=== PATIENT | male | born 1965 | race Caucasian/White ===

== ENCOUNTER 2017-02-07 22:00 | Emergency (ER) | payer OTHER ==
[2017-02-07 22:16] VITALS: BMI 31.0
--- NOTE | 2017-02-07 22:40 | PDOC ---
History of Present Illness - History of Present Illness Initial Comments: 02/07/17 22:40 Mr. Santos is a 52 yo male with a significant past medical history of Hypercholesterolemia, Hypertriglyceridemia, BPH, and pre-diabetes who presents to the emergency department with a one day history of pain to his lower right abdomen and right flank. He says that the pain is constant and that earlier today it made him dizzy and that he had to sit down so he didn't pass out. He also reports a recent diagnosis of prostate infection for which he has started taking levofloxacin. The patient denies chest pain, shortness of breath, and headache. Denies fever, chills, nausea, vomit, diarrhea and constipation. Denies frequency, urgency and hematuria. Allergies: NKDA 2 02/07/17 23:09 <Ronald Hunter - Last Filed: 02/07/17 22:56> <Sammi Lane - Last Filed: 02/09/17 00:14> - General Chief Complaint: Pain Stated Complaint: PAIN,DIZZINESS Time Seen by Provider: 02/07/17 22:39 Past History - Past Medical History Anemia: No Asthma: No Cancer: No Cardiac Disorders: No CVA: No COPD: No CHF: No Dementia: No Diabetes: Yes GI Disorders: Yes (GERD) Disorders: No HTN: No Hypercholesterolemia: Yes (NO MEDICATION) Liver Disease: No Seizures: No Thyroid Disease: No - Surgical History Abdominal Surgery: No Appendectomy: No Cardiac Surgery: No Cholecystectomy: No Lung Surgery: No Neurologic Surgery: No Orthopedic Surgery: Yes (LEFT KNEE SURGERY) - Psycho/Social/Smoking Cessation Hx Anxiety: No Suicidal Ideation: No Smoking History: Never smoked Have you smoked in the past 12 months: No Number of Cigarettes Smoked Daily: 0 If you are a former smoker, when did you quit?: 1979 Information on smoking cessation initiated: No Hx Alcohol Use: No Drug/Substance Use Hx: No Substance Use Type: None Hx Substance Use Treatment: No <Ronald Hunter - Last Filed: 02/07/17 22:56> <Sammi Lane - Last Filed: 02/09/17 00:14> - Past Medical History Allergies/Adverse Reactions: Allergies Allergy/AdvReac Type Severity Reaction Status Date / Time No Known Allergies Allergy Verified 02/08/17 01:15 Home Medications: Ambulatory Orders Omeprazole [Prilosec] 40 mg PO BID 12/28/15 Amoxicillin/Potassium Clav [Augmentin 875-125 Tablet] 1 each PO BID #14 tablet 02/08/17 Review of Systems - Review of Systems Comments:: 02/07/17 22:40 GENERAL/CONSTITUTIONAL: No fever or chills. No weakness. HEAD, EYES, EARS, NOSE AND THROAT: No change in vision. No ear pain or discharge. No sore throat. CARDIOVASCULAR: No chest pain or shortness of breath RESPIRATORY: No cough, wheezing, or hemoptysis. GASTROINTESTINAL: +Right lower abdominal pain radiating to right flank. No nausea, vomiting, diarrhea or constipation. GENITOURINARY: +Dysuria reported after cystoscopy this AM to track his BPH MUSCULOSKELETAL: No joint or muscle swelling or pain. No neck or back pain. SKIN: No rash NEUROLOGIC: No headache, vertigo, loss of consciousness, or change in strength/ sensation. ENDOCRINE: No increased thirst. No abnormal weight change HEMATOLOGIC/LYMPHATIC: No anemia, easy bleeding, or history of blood clots. ALLERGIC/IMMUNOLOGIC: No hives or skin allergy. <Ronald Hunter - Last Filed: 02/07/17 22:56> *Physical Exam - Vital Signs Last Vital Signs Temp Pulse Resp BP Pulse Ox 98.0 F 71 18 110/73 98 02/07/17 22:04 02/07/17 22:04 02/07/17 22:04 02/07/17 22:04 02/07/17 22:04 - Physical Exam Comments: 02/07/17 22:40 GENERAL: Awake, alert, and fully oriented, in no acute distress HEAD: No signs of trauma, normocephalic, atraumatic EYES: PERRLA, EOMI, sclera anicteric, conjunctiva clear ENT: Auricles normal inspection, hearing grossly normal, nares patent, oropharynx clear without exudates. Moist mucosa NECK: Normal ROM, supple, no lymphadenopathy, JVD, or masses LUNGS: No distress, speaks full sentences, clear to auscultation bilaterally HEART: Regular rate and rhythm, normal S1 and S2, no murmurs, rubs or gallops, peripheral pulses normal and equal bilaterally. ABDOMEN: +Tender to RLQ radiating to right flank. Soft, normoactive bowel sounds. No guarding, no rebound. No masses EXTREMITIES: Normal inspection, Normal range of motion, no edema. No clubbing or cyanosis. NEUROLOGICAL: Cranial nerves II through XII grossly intact. Normal speech, normal gait, no focal sensorimotor deficits SKIN: Warm, Dry, normal turgor, no rashes or lesions noted. <Ronald Hunter - Last Filed: 02/07/17 22:56> - Vital Signs Last Vital Signs Temp Pulse Resp BP Pulse Ox 98.1 F 62 15 118/59 98 02/08/17 06:57 02/08/17 06:57 02/08/17 06:57 02/08/17 06:57 02/08/17 06:57 <Sammi Lane - Last Filed: 02/09/17 00:14> ED Treatment Course - LABORATORY CBC & Chemistry Diagram: 02/08/17 01:03 02/08/17 01:03 - ADDITIONAL ORDERS Additional order review: Laboratory Results 02/08/17 02/08/17 02/08/17 01:03 01:03 01:00 Sodium Cancelled 140 Potassium Cancelled 4.1 Chloride Cancelled 107 Carbon Dioxide Cancelled 24 Anion Gap Cancelled 9 BUN Cancelled 17 Creatinine Cancelled 0.9 D Creat Clearance w eGFR Cancelled > 60 Random Glucose Cancelled 100 D Calcium Cancelled 7.8 L Total Bilirubin Cancelled 0.9 AST Cancelled 17 D ALT Cancelled 34 D Alkaline Phosphatase Cancelled 68 Total Protein Cancelled 6.1 L Albumin Cancelled 3.3 L Urine Color Yellow Urine Appearance Clear Urine pH 6.0 Urine Protein Negative Urine Glucose (UA) Negative Urine Ketones Negative Urine Blood 3+ H Urine Nitrite Negative Urine Bilirubin Negative Urine Urobilinogen Negative Ur Leukocyte Esterase Negative Urine RBC 19 Urine WBC None 02/08/17 01:03 RBC 4.72 MCV 86.2 MCHC 35.4 RDW 13.8 MPV 9.8 Neutrophils % 55.2 D Lymphocytes % 32.0 D Monocytes % 6.8 Eosinophils % 5.3 H D Basophils % 0.7 - RADIOLOGY Radiology Studies Ordered: Category Date Time Status ABDOMEN & PELVIS CT W/O CONTR [CT] Stat CT Scan 02/08/17 05:10 Taken - Medications Given in the ED: ED Medications Discontinued Medications Generic Name Dose Route Start Last Admin Trade Name Freq PRN Reason Stop Dose Admin Sodium Chloride 1,000 mls @ 1,000 mls/hr 02/08/17 00:08 02/08/17 01:12 Normal Saline - IV 02/08/17 01:07 1,000 mls/hr ASDIR STA Administration <Sammi Lane - Last Filed: 02/09/17 00:14> Medical Decision Making - Medical Decision Making 02/08/17 07:20 Pt states that he has been having right lower abd pain. Liver GB and appy normal. He has mild diverticulitis of ascending colon. He has decreased appetite. He will receive 1.5g unasyn and 500 ml saline and he will be sent home with augmentin BID x 7 days. <Sammi Lane - Last Filed: 02/09/17 00:14> *DC/Admit/Observation/Transfer <Ronald Hunter - Last Filed: 02/07/17 22:56> <Sammi Lane - Last Filed: 02/09/17 00:14> Diagnosis at time of Disposition: Diverticulitis - Discharge Dispostion Disposition: HOME Condition at time of disposition: Stable - Prescriptions Prescriptions: Amoxicillin/Potassium Clav [Augmentin 875-125 Tablet] 1 each PO BID #14 tablet - Patient Instructions Printed Discharge Instructions: DI for Diverticulitis Print Language: SERBIAN
[2017-02-08] MEDS ORDERED: SODIUM CHLORIDE 1,000 ML IV STA (00:08)
--- NOTE | 2017-02-08 00:27 | PDOC ---
Attending Attestation - Resident Resident Name: Ronald Hunter - ED Attending Attestation I have performed the following: I have examined & evaluated the patient, The case was reviewed & discussed with the resident, I agree w/resident's findings & plan, Exceptions are as noted - HPI HPI: 02/08/17 00:25 52-year-old male with history of BPH, hypercholesterolemia, hype rate triglyceridemia, prediabetes presents to the ER with atraumatic right-sided abdominal pain, nausea and 2 episodes of nonbloody, nonbilious vomiting. Patient also reports undergoing cystoscopy for BPH early on the day of arrival. Patient denies fever/chills. - Physicial Exam PE: 02/08/17 00:25 In the ER, patient is awake and alert, afebrile, hemodynamically stable. EXAMINATION CONSTITUTIONAL: Well-appearing; well-nourished; in no apparent distress HEAD: Normocephalic; atraumatic EYES: PERRL; EOM intact ENMT: External appears normal; normal oropharynx NECK: Supple; non-tender; no cervical lymphadenopathy CARD: Normal S1, S2; no murmurs, rubs, or gallops RESP: Normal chest excursion with respiration; breath sounds clear and equal bilaterally; no wheezes, rhonchi, or rales ABD: Soft, non-distended; right sided abdominal tender to palpation; no guarding or rebound; no CVA tenderness bilaterally; no palpable organomegaly, no palpable hernias EXT: Normal ROM in all four extremities; non-tender to palpation; distal pulses intact SKIN: Warm, dry, no rash NEURO: No focal neurological deficiencies. - Medical Decision Making 02/08/17 00:26 52-year-old male presents with right-sided abdominal pain, nausea and vomiting. We'll obtain CBC/CMP/UA/CT to rule out acute appendicitis/colitis/ diverticulitis. Will reassess.
[2017-02-08 01:15] LABS: BASOPHIL 0.7 % (0-2.0); EOSINOPHIL 5.3 % (0-4.5); MCH 30.5 pg (25.7-33.7); MCHC 35.4 g/dl (32.0-35.9); MEAN CELL VOLUME 86.2 fl (80-96); MEAN PLT VOLUME 9.8 fl (7.5-11.1); NEUTROPHILS 55.2 % (42.8-82.8); PLATELET COUNT 207 K/MM3 (134-434); RDW 13.8 % (11.9-15.9); WHITE BLOOD COUNT 8.5 K/mm3 (4.0-10.0)
[2017-02-08 01:20] LABS: URINE APPEARANCE CLEAR; URINE BILIRUBIN NEGATIVE (NEGATIVE); URINE BLOOD 3+ (NEGATIVE); URINE COLOR YELLOW; URINE GLUCOSE (UA) NEGATIVE (NEGATIVE); URINE KETONE NEGATIVE (NEGATIVE); URINE LEUK ESTERASE NEGATIVE (NEGATIVE); URINE NITRITE NEGATIVE (NEGATIVE); URINE PROTEIN NEGATIVE (NEGATIVE); URINE UROBILINOGEN NEGATIVE mg/dL (0.2-1.0)
[2017-02-08 01:22] LABS: URINE RBC 19 /hpf (0-3)
[2017-02-08 02:10] LABS: ALBUMIN 3.3 g/dl (3.4-5.0); ANION GAP 9 (8-16); BILIRUBIN,TOTAL 0.9 mg/dL (0.2-1.0); CALCIUM 7.8 mg/dL (8.5-10.1); CO2 24 mmol/L (21-32); CREATININE 0.9 mg/dL (0.7-1.3); GLUCOSE,RANDOM 100 mg/dL (74-106); SGOT/AST 17 U/L (15-37); SGPT/ALT 34 U/L (12-78)
[2017-02-08 02:12] LABS: ALK PHOS 68 U/L (45-117); TOT PROT 6.1 g/dl (6.4-8.2)
[2017-02-08 07:01] VITALS: TEMP 98.1
[2017-02-08] MEDS ORDERED: AMPICILLIN NA/SULBACTAM NA 1.5 GM in SODIUM CHLORIDE 100 ML IVPB ONE (07:20)
[2017-02-08] MEDS ORDERED: SODIUM CHLORIDE 0.9% 500 ML INFUS.BAG IV ONE (07:22)
--- NOTE | 2017-02-08 07:26 | PDOC ---
*Physical Exam - Vital Signs Last Vital Signs Temp Pulse Resp BP Pulse Ox 98.1 F 62 15 118/59 98 02/08/17 06:57 02/08/17 06:57 02/08/17 06:57 02/08/17 06:57 02/08/17 06:57 ED Treatment Course - LABORATORY CBC & Chemistry Diagram: 02/08/17 01:03 02/08/17 01:03 - ADDITIONAL ORDERS Additional order review: Laboratory Results 02/08/17 02/08/17 02/08/17 01:03 01:03 01:00 Sodium Cancelled 140 Potassium Cancelled 4.1 Chloride Cancelled 107 Carbon Dioxide Cancelled 24 Anion Gap Cancelled 9 BUN Cancelled 17 Creatinine Cancelled 0.9 D Creat Clearance w eGFR Cancelled > 60 Random Glucose Cancelled 100 D Calcium Cancelled 7.8 L Total Bilirubin Cancelled 0.9 AST Cancelled 17 D ALT Cancelled 34 D Alkaline Phosphatase Cancelled 68 Total Protein Cancelled 6.1 L Albumin Cancelled 3.3 L Urine Color Yellow Urine Appearance Clear Urine pH 6.0 Urine Protein Negative Urine Glucose (UA) Negative Urine Ketones Negative Urine Blood 3+ H Urine Nitrite Negative Urine Bilirubin Negative Urine Urobilinogen Negative Ur Leukocyte Esterase Negative Urine RBC 19 Urine WBC None 02/08/17 01:03 RBC 4.72 MCV 86.2 MCHC 35.4 RDW 13.8 MPV 9.8 Neutrophils % 55.2 D Lymphocytes % 32.0 D Monocytes % 6.8 Eosinophils % 5.3 H D Basophils % 0.7 - Medications Given in the ED: ED Medications Discontinued Medications Generic Name Dose Route Start Last Admin Trade Name Freq PRN Reason Stop Dose Admin Sodium Chloride 1,000 mls @ 1,000 mls/hr 02/08/17 00:08 02/08/17 01:12 Normal Saline - IV 02/08/17 01:07 1,000 mls/hr ASDIR STA Administration Medical Decision Making - Medical Decision Making Pt endorsed to me at 7am shift change by Dr. Lane. Awaiting first dose of abx IV , then Dc home with augmentin for diverticulitis. *DC/Admit/Observation/Transfer Diagnosis at time of Disposition: Diverticulitis Qualifiers: Diverticulitis site: unspecified part of intestinal tract Diverticulitis bleeding: without bleeding Diverticulitis complication: unspecified complication status Qualified Code(s): K57.92 - Diverticulitis of intestine, part unspecified, without perforation or abscess without bleeding - Discharge Dispostion Disposition: HOME Condition at time of disposition: Stable Admit: No - Prescriptions Prescriptions: Amoxicillin/Potassium Clav [Augmentin 875-125 Tablet] 1 each PO BID #14 tablet - Patient Instructions Printed Discharge Instructions: DI for Diverticulitis Print Language: SAMMARINESE
[2017-02-08 08:40] VITALS: BP 99/60; PULSE 68
== END 2017-02-08 08:41 | disposition home or self-care (01) ==
LOC: JER 22:00
PROC: 3E0337Z Introduction of Electrolytic and Water Balance Substance into Peripheral Vein, Percutaneous Approach (ICD-10-PCS; principal; 2017-02-07)
PROC: 3E03329 Introduction of Other Anti-infective into Peripheral Vein, Percutaneous Approach (ICD-10-PCS; 2017-02-07)
DX: K57.92 Diverticulitis of intestine, part unspecified, without perforation or abscess without bleeding (principal)
CPT/HCPCS: 36415; 74176-TC; 80053; 81003; 81015; 85025; 87086; 99283-25

== ENCOUNTER 2022-11-14 23:22 | Emergency (ER) | payer OTHER ==
[2022-11-14 23:27] VITALS: BP 121/68; PULSE 86; RESP 18; TEMP 98.1; BMI 31.9
[2022-11-15] MEDS ORDERED: DEXAMETHASONE SOD PHOSPHATE 10 MG/1 ML VIAL IM ONE (00:14)
[2022-11-15] MEDS ORDERED: ACETAMINOPHEN 500 MG TABLET (FP) PO ONE (00:14)
[2022-11-15] MEDS ORDERED: KETOROLAC TROMETHAMINE 15 MG/ML VIAL IM ONE (00:14)
[2022-11-15] MEDS ORDERED: ACETAMINOPHEN 500 MG TABLET (FP) ONE (00:22)
[2022-11-15] MEDS ORDERED: KETOROLAC TROMETHAMINE 15 MG/ML VIAL ONE (00:24)
[2022-11-15] MEDS ORDERED: DEXAMETHASONE SOD PHOSPHATE 10 MG/1 ML VIAL ONE (00:24)
[2022-11-15 02:02] LABS: THROAT:GRP A STREP NOT DETECTED (NOTDETECTED)
== END 2022-11-15 02:36 | disposition home or self-care (01) ==
LOC: JER 23:22
PROC: 3E0233Z Introduction of Anti-inflammatory into Muscle, Percutaneous Approach (ICD-10-PCS; principal; 2022-11-14)
PROC: 3E023GC Introduction of Other Therapeutic Substance into Muscle, Percutaneous Approach (ICD-10-PCS; 2022-11-14)
DX: R07.0 Pain in throat (principal); R13.10 Dysphagia, unspecified; Z20.822 Contact with and (suspected) exposure to COVID-19
CPT/HCPCS: 0241U-QW; 87070; 87651; 96372; 99284-25; J1100